=== PATIENT | male | born 1985 | race Caucasian/White ===

== ENCOUNTER 2018-09-09 22:39 | Emergency (ER) | payer OTHER, SELFPAY ==
[2018-09-09 23:35] LABS: ALT (SGPT) 106 U/L (8-55); AST (SGOT) 39 U/L (5-34); Albumin 4.3 g/dL (3.5-5.0); Alkaline Phosphatase 95 U/L (40-150); Anion Gap 14 mmol/L (10-20); BUN (Urea Nitrogen) 14 mg/dL (8.9-20.6); Bilirubin, Total 0.9 mg/dL (0.2-1.2); Calc. Creatinine Clearance 0 mL/min (70-130); Calcium 9.8 mg/dL (7.8-10.44); Carbon Dioxide 25 mmol/L (22-29); Chloride 104 mmol/L (98-107); Estimated GFR-MDRD 81; Globulin 2.8 g/dL (2.4-3.5); Glucose 116 mg/dL (70-105); Potassium 3.2 mmol/L (3.5-5.1); Protein, Total 7.1 g/dL (6.0-8.3); Sodium 140 mmol/L (136-145)
[2018-09-09] MEDS ORDERED: Lidocaine 1% PF 5 ML VIAL ONE ×2 (23:47→23:48)
[2018-09-09] MEDS ORDERED: Sodium Bicarbonate 2.5 MEQ/5 ML VIAL ONE ×2 (23:47→23:48)
[2018-09-10 00:14] LABS: #Eosinphils 0.3 thou/uL (0.0-0.7); #Lymphocytes 1.9 thou/uL (1.20-3.40); #Monocytes 0.9 thou/uL (0.11-0.59); #Neutrophils 6.9 thou/uL (1.40-6.50); %Basophils 0.5 % (0.0-1.0); %Eosinophils 2.6 % (0.0-10.0); %Lymphocytes 18.8 % (21.0-51.0); %Monocytes 9.4 % (0.0-10.0); %Neutrophils 68.8 % (42.0-75.0); Mean Corpuscular HGB CONC 35.7 g/dL (32.0-36.0); Mean Corpuscular Hemoglobin 31.5 pg (27.0-31.0); Mean Corpuscular Volume 88.3 fL (78.0-98.0); Platelet Count 257 thou/uL (130-400); RBC Distribution Width 11.5 % (11.5-14.5); Red Blood Cell (RBC) Count 5.08 mill/uL (4.70-6.10)
[2018-09-10] MEDS ORDERED: Sulfameth/Trimethoprim DS 800-160mg TAB ONE (00:25)
[2018-09-10] MEDS ORDERED: Ketorolac Tromethamine 30 MG/ML VIAL ONE (00:25)
[2018-09-10] MEDS ORDERED: Adacel (T-DAP) 0.5 ML SYRINGE ONE (00:32)
== END 2018-09-10 00:30 | disposition home or self-care (01) ==
LOC: BURERS 22:39
DX: L03.115 Cellulitis of right lower limb (principal); F32.9 Major depressive disorder, single episode, unspecified; F17.210 Nicotine dependence, cigarettes, uncomplicated
CPT/HCPCS: 10060; 80053; 83605; 85025; 87070; 87205; 90471; 90715; 96374; J1885; J2001

== ENCOUNTER 2022-04-17 10:38 | Emergency (ER) | payer OTHER, SELFPAY ==
[2022-04-17] MEDS ORDERED: Acetaminophen 500 MG TAB ONE (11:00)
== END 2022-04-17 11:54 | disposition home or self-care (01) ==
LOC: BURERS 10:38
DX: B34.9 Viral infection, unspecified (principal); F17.210 Nicotine dependence, cigarettes, uncomplicated
CPT/HCPCS: 87081; 87430; 87804; 99283

== ENCOUNTER 2023-10-26 12:17 | Emergency (ER) | payer BC, OTHER ==
[2023-10-26 13:40] LABS: Influenza A by NAA Not Detected (NotDetected); Influenza B by NAA Not Detected (NotDetected); SARS-CoV-2 NAA Rapid Test Not Detected (NotDetected)
[2023-10-26] MEDS ORDERED: Naproxen 500 MG TAB ONE (13:57)
[2023-10-26] MEDS ORDERED: methylPREDNISolone Sod Succ/PF 125 MG/2 ML VIAL ONE (13:57)
== END 2023-10-26 14:04 | disposition home or self-care (01) ==
LOC: BURERS 12:17
DX: J02.9 Acute pharyngitis, unspecified (principal); F17.210 Nicotine dependence, cigarettes, uncomplicated
CPT/HCPCS: 87081; 87430; 96372; 99283; J2930

== ENCOUNTER 2024-04-05 15:12 | Emergency (ER) | payer SELFPAY | END 2024-04-05 15:47 | disposition home or self-care (01) | LOC: BURERS 15:12 | DX: J06.9 Acute upper respiratory infection, unspecified (principal); F17.210 Nicotine dependence, cigarettes, uncomplicated | CPT/HCPCS: 99283 ==